=== PATIENT | male | born 1970 | race American Indian/Alaskan Native ===

== ENCOUNTER 2016-10-11 21:48 | Emergency (ER) | payer SELFPAY ==
[2016-10-11 22:00] VITALS: BP 130/92
== END 2016-10-12 00:35 | disposition left against medical advice (07) ==
LOC: ED 21:48
DX: E11.649 Type 2 diabetes mellitus with hypoglycemia without coma (principal); I10 Essential (primary) hypertension; Z53.21 Procedure and treatment not carried out due to patient leaving prior to being seen by health care provider
CPT/HCPCS: 82962